=== PATIENT | female | born 1970 | race Caucasian/White ===

== ENCOUNTER 2025-02-25 20:24 | Emergency (ER) | payer OTHER, SELFPAY ==
[2025-02-25 20:27] VITALS: BP 129/85
[2025-02-25 21:18] VITALS: BMI 22.1
[2025-02-25 22:33] VITALS: BP 110/81
[2025-02-25] MEDS: PEPCID 20 MG IV (22:50)
--- NOTE | 2025-02-25 23:36 | ED.GENMED ---
History of Present Illness
General
Chief Complaint: Allergic Reaction
Source: patient and previous hospital records (ED visit 2015 for acute allergic reaction thought to be related to Bactrim. Treated with IV Benadryl, Pepcid, Decadron with resolution.)
Exam Limitations: none
Time Seen by Provider: 02/25/25 23:02
Nursing documentation reviewed up to this point in time: agreed with
History of Present Illness
History of Present Illness:
This is a 54-year-old woman with history of hypothyroidism who presents with acute generalized itchy rash that began this afternoon while [place] [employer]. She admits to eating a fair amount of various foods all of which she has never
experienced in the past. Generalized erythematous itchy rash has persisted throughout the evening, thus far no improvement with a dose of Benadryl 25 mg which she took at 5 PM and then an additional 25 mg at 6 PM.
She denies cough no shortness of breath, no sore throat nor facial nor tongue swelling, no abdominal pain, no nausea nor vomiting, no diarrhea.
Her only daily medication is levothyroxine. She denies recent antibiotic use. She denies new household products, denies retinol products etc.
Past History
Past History
ED Past Medical History: Hypothyroidism; Negative Asthma, HTN, Hypercholesterolemia or NIDDM
ED Past Surgical History: Other (Bilateral breast implants)
Social History
Tobacco: Non-smoker
Alcohol: Occasional
Drug: None
Personal:
Living: alone
Employment: Employed
Family History
Family History: Other (Noncontributory)
Phy Exam
Physical Exam
Physical Exam:
GENERAL: 54-year-old woman appears her stated age, awake and alert, pleasant, appears in no acute distress. Intermittently scratching at her forearms. 2 friends are accompanying her.
EYE: pupils equal. anicteric
NECK: Supple, nontender, no meningismus, no significant adenopathy.
ENT: posterior pharynx is clear, oral mucosa is moist. TM clear b/l, nares patent. No angioedema.
CARDIAC: Regular rate and rhythm. no murmur.
LUNGS: Clear breath sounds bilaterally, no acute respiratory distress, no wheezes/rales/rhonchi
ABDOMEN: Soft, nondistended, without focal tenderness, no r/g, no cvat. normoactive BS.
NEUROLOGICAL: Alert and oriented x3, no focal neuro deficits. Gait is keller and steady.
SKIN: Warm and dry, normal color, skin intact. Erythematous rash to trunk, bilateral upper arms, bilateral proximal lower legs.
MUSCULOSKELETAL: No C/C/E. peripheral pulses are full and equal b/l. No palpable tenderness.
PSYCH: Normal and appropriate interaction.
Course
Orders/Labs/Results
Orders:
Orders
02/25/25 22:47
Famotidine [Pepcid] 20 mg .ROUTE .STK-MED ONE
02/25/25 22:49
Famotidine [Pepcid] 20 mg IV NOW STA
02/25/25 23:12
Dexamethasone Sod Phosphate [Decadron] 20 mg IV NOW STA
Diphenhydramine [Benadryl] 50 mg IV NOW STA
Vital Signs
Initial and Last Documented VS:
Initial Vital Signs
Temp Pulse Resp BP Pulse Ox
98.4 F 75 16 129/85 100
02/25/25 20:27 02/25/25 20:27 02/25/25 20:27 02/25/25 20:27 02/25/25 20:27
Last Documented Vital Signs
Temp Pulse Resp BP Pulse Ox
97.8 F 72 16 131/90 98
02/25/25 22:33 02/26/25 00:33 02/26/25 00:33 02/26/25 00:33 02/26/25 00:33
MDM/Problems Addressed
Differential Diagnosis Includes:
Patient presents with generalized erythematous itchy rash that appears allergic reaction in nature.
No anaphylactoid signs or symptoms.
Will give an IV dose of Pepcid, Benadryl, Decadron. If ineffective consider subcu epinephrine.
*Pulse Oximetry
SaO2: 99
Oxygen Mode of Delivery: Room air
Patient hypoxic: no
*Critical Care Note
Total Time (30-74mins, 75-104mins- exclusive of procedures): Not Applicable
Update Note
Update Note:
01:00
Patient feeling improved. Itching has markedly improved and erythema has improved as well.
Recommend she initiate a daily dose of Zyrtec versus Claritin.
Will add prednisone taper.
Prompt follow-up with PCP for recheck.
Return precautions discussed.
ED Attending Note
-
Portions of this chart may have been created with voice recognition software.� Occasional wrong word or��sound alike� substitutions may have occurred due to the inherent limitations of voice recognition software.
Discharge Plan
Departure
Patient Disposition: Home (Routine Discharge)
Date of Disposition: 02/26/25
Time of Disposition: 00:58
Patient with high blood pressure during this ER visit?: No
Condition: Good
Discharge Problem:
Acute allergic reaction
Instructions: Allergic reaction - ED discharge instructions
Prescriptions:
New
prednisone 10 mg Tablet
See Rx Instructions .ROUTE .COMPLEX Qty: 30 0RF
Rx Instructions:
Take By Mouth:
40 mg daily x3 days, 30 mg daily x3 days,
20 mg daily x3 days, 10 mg daily x3 days.
No Action
norethin-e.estradiol triphasic [Ortho-Novum (28)] 1 EACH tablet
1 ea PO DAILY
sulfamethoxazole-trimethoprim 1 TABLET tablet
1 tab PO BID
Patient Comments:
Pt states she stopped this med yesterday and started on prednisone due to development of rash (noted 08/31/14).
diphenhydramine HCl [Benadryl Allergy] 25 MG tablet
25 mg PO Q6HPRN PRN (Reason: allergic rash, itching)
Prednisone
4 mg PO DAILY
epinephrine [EpiPen] 0.3 MG/0.3/SYRINGE auto-injector
0.3 mg IM STAT! PRN (Reason: severe sob) Qty: 2 0RF
Referrals:
Jackelin Natarajan PA-C [Family Provider] - Call in 1-3 days for appt
Interventions
Interventions:
*Risk Screen - Suicide Last Done: 02/25/25 21:19
*General Assessment Last Done: 02/25/25 21:19
*Neglect/Abuse Screening Last Done: 02/25/25 21:19
*ED- Fall Risk Assessment Last Done: 02/25/25 21:19
*ED COVID-19 Vaccine History Last Done: 02/25/25 21:19
ED- Cardiac Assessment Last Done: 02/25/25 21:25
ED- Pulmonary Assessment Last Done: 02/25/25 21:25
ED-Skin Assessment Last Done: 02/25/25 21:25
Discharge Date and Time
Print Language: FAROESE
[2025-02-25] MEDS: BENADRYL 50 MG IV (23:43)
[2025-02-25] MEDS: DECADRON 20 MG IV (23:45)
[2025-02-26 00:33] VITALS: BP 131/90
== END 2025-02-26 01:19 | disposition home or self-care (01) ==
LOC: EMR 20:24
PROVIDERS: EMERGENCY PHYSICIAN Emergency Medicine; FAMILY PHYSICIAN Physician Assistant Medical
DX: T78.40XA Allergy, unspecified, initial encounter (principal); R21 Rash and other nonspecific skin eruption; X58.XXXA Exposure to other specified factors, initial encounter; E03.9 Hypothyroidism, unspecified
CPT/HCPCS: 99284; 96374; 96375 ×2